=== PATIENT | male | born 1995 | race Hispanic/Latino ===

== ENCOUNTER 2022-06-28 10:50 | Outpatient (CLI) | payer OTHER | END 2022-06-28 10:51 | disposition home or self-care (01) | LOC: SCSCT 10:50 | PROVIDERS: ATTEND Orthopaedic Surgery Hand Surgery | DX: S62.522S Displaced fracture of distal phalanx of left thumb, sequela (principal) ==

== ENCOUNTER 2022-07-20 09:59 | Outpatient (CLI) | payer OTHER | END 2022-07-20 10:00 | disposition home or self-care (01) | LOC: SCSMRI 09:59 | PROVIDERS: ATTEND Orthopaedic Surgery Hand Surgery | DX: D36.10 Benign neoplasm of peripheral nerves and autonomic nervous system, unspecified (principal); Z87.81 Personal history of (healed) traumatic fracture ==